=== PATIENT | female | born 1955 | race Caucasian/White ===

== ENCOUNTER 2018-05-02 17:15 | Inpatient (IN) | payer MEDICAID ==
[~2018-05-02] VITALS: Ht 162.6 cm; Wt 99.8 kg
[2018-05-02] MEDS ORDERED: TRAZ-212 PO (17:30)
[2018-05-02] MEDS ORDERED: MECL-109 PO (17:30)
[2018-05-02] MEDS ORDERED: METF10004 PO (17:30)
[2018-05-02] MEDS ORDERED: HYDR25TA PO (17:30)
[2018-05-02] MEDS ORDERED: ASPIRIN 81MG TABLET PO ONE (22:30)
[2018-05-02 23:14] LABS: BASOPHILS % 0.4 % (0.0-2.0); EOSINOPHILS % 2.1 % (0.0-5.0); HEMATOCRIT. 45.8 % (36.0-48.0); LYMPHOCYTES % 44.2 % (20.0-50.0); MEAN CORPUSCULAR HEMOGLOBIN 26.9 pg (28.0-32.0); MEAN CORPUSCULAR VOLUME 82.1 fL (81.0-99.0); MEAN PLATELET VOLUME 8.7 fl (7.4-10.4); MONOCYTES % 6.4 % (2.0-8.0); NEUTROPHILS % 46.9 % (40.0-76.0); PLATELET 257 x1000/uL (130-400); RED BLOOD CELL COUNT 5.58 mill/uL (4.2-5.4); RED CELL DISTRIBUTION WIDTH 14.4 % (11.6-14.6)
[2018-05-02 23:18] LABS: CHLORIDE 105 mEq/L (98-107)
[2018-05-02 23:23] LABS: PARTIAL THROMBOPLASTIN TIME 26.6 sec (23.4-31.0); PROTHROMBIN TIME 10.4 sec (9.1-11.1)
[2018-05-02 23:26] LABS: BETA HYDROXYBUTYRATE 0.1 mMol/L (0.0-0.3)
[2018-05-02 23:43] LABS: CLARITY URINE CLEAR (CLEAR); COLOR URINE YELLOW (YELLOW); KETONES URINE NEGATIVE (NEGATIVE); LEUKOCYTE ESTERASE URINE NEGATIVE (NEGATIVE); NITRITE URINE NEGATIVE (NEGATIVE); OCCULT BLOOD URINE NEGATIVE (NEGATIVE); PROTEIN URINE NEGATIVE (NEGATIVE); UROBILINOGEN URINE 0.2 E.U./dL (0.2-1.0)
[2018-05-03 02:30] VITALS: BP 140/54
[2018-05-03 03:27] VITALS: BP 140/54
[2018-05-03] MEDS ORDERED: DEXTROSE 50% WATER 50ML SYRINGE IV PRN (03:30)
[2018-05-03] MEDS: BLOOD SUGAR DIAGNOSTIC STRIP TEST SCH ×4 (06:34→21:00)
[2018-05-03] MEDS: INSULIN LISPRO 100 UNITS/ML SUBCUT SCH ×4 (07:23→21:00)
[2018-05-03 08:00] VITALS: BP 110/48
[2018-05-03] MEDS: HYDROCHLOROTHIAZIDE 25MG TABLET PO SCH (09:00)
[2018-05-03] MEDS: METFORMIN HCL 500MG TABLET PO SCH ×2 (09:18→18:48)
[2018-05-03] MEDS ORDERED: MORPHINE SULFATE 4 MG/ML CPJ (NOT FOR IM USE) IV PRN (10:00)
[2018-05-03] MEDS ORDERED: ACETAMINOPHEN 325MG TABLET PO PRN (10:00)
[2018-05-03 12:00] VITALS: BP 134/60
[2018-05-03] MEDS ORDERED: DIPHENHYDRAMINE 50MG/ML VIAL IV PRN (12:15)
[2018-05-03] MEDS ORDERED: ONDANSETRON HCL 4MG/2ML INJ IV PRN (12:15)
[2018-05-03] MEDS ORDERED: SUMATRIPTAN SUCCINATE 6MG/0.5ML VIAL SUBCUT NR (13:30)
[2018-05-03 16:00] VITALS: BP 137/60
[2018-05-03] MEDS: MECLIZINE 25MG TABLET PO PRN (16:01)
[2018-05-03 20:00] VITALS: BP 130/70
[2018-05-03] MEDS: HYDROCODONE/ACETAMINOPHEN 5/325MG TABLET PO PRN (20:18)
[2018-05-04] VITALS: BP 106/51
[2018-05-04 04:00] VITALS: BP 121/52
[2018-05-04] MEDS: HYDROCODONE/ACETAMINOPHEN 5/325MG TABLET PO PRN ×2 (07:07→20:19)
[2018-05-04] MEDS: BLOOD SUGAR DIAGNOSTIC STRIP TEST SCH ×4 (07:10→20:15)
[2018-05-04 07:19] LABS: BASOPHILS % 0.7 % (0.0-2.0); EOSINOPHILS % 2.9 % (0.0-5.0); HEMATOCRIT. 45.9 % (36.0-48.0); HEMOGLOBIN. 15.1 g/dL (12.0-16.0); LYMPHOCYTES % 54.4 % (20.0-50.0); MEAN CORPUSCULAR HEMOGLOBIN 27.4 pg (28.0-32.0); MEAN CORPUSCULAR VOLUME 83.6 fL (81.0-99.0); MEAN PLATELET VOLUME 9.3 fl (7.4-10.4); MONOCYTES % 5.9 % (2.0-8.0); NEUTROPHILS % 36.1 % (40.0-76.0); PLATELET 150 x1000/uL (130-400); RED BLOOD CELL COUNT 5.49 mill/uL (4.2-5.4); RED CELL DISTRIBUTION WIDTH 14.7 % (11.6-14.6)
[2018-05-04] MEDS: INSULIN LISPRO 100 UNITS/ML SUBCUT SCH ×4 (07:50→20:15)
[2018-05-04 07:59] LABS: CHLORIDE 107 mEq/L (98-107)
[2018-05-04 08:00] VITALS: BP 116/61
[2018-05-04] MEDS: METFORMIN HCL 500MG TABLET PO SCH ×2 (08:44→17:40)
[2018-05-04] MEDS: HYDROCHLOROTHIAZIDE 25MG TABLET PO SCH (08:45)
[2018-05-04 12:00] VITALS: BP 120/68
[2018-05-04 16:00] VITALS: BP 120/53
[2018-05-04 20:00] VITALS: BP 119/71
[2018-05-05] VITALS: BP 116/51
[2018-05-05 04:00] VITALS: BP 122/53
[2018-05-05] MEDS: HYDROCODONE/ACETAMINOPHEN 5/325MG TABLET PO PRN (04:06)
[2018-05-05] MEDS: BLOOD SUGAR DIAGNOSTIC STRIP TEST SCH ×2 (07:20→12:38)
[2018-05-05] MEDS: INSULIN LISPRO 100 UNITS/ML SUBCUT SCH ×2 (07:45→12:50)
[2018-05-05 08:00] VITALS: BP 111/60
[2018-05-05 08:25] LABS: LUTEINIZING HORMONE 18.3 mIU/mL (.); PROLACTIN 14.9 ng/mL (4.8-23.3)
[2018-05-05] MEDS: METFORMIN HCL 500MG TABLET PO SCH (08:32)
[2018-05-05] MEDS: HYDROCHLOROTHIAZIDE 25MG TABLET PO SCH (08:33)
[2018-05-05] MEDS: MECLIZINE 25MG TABLET PO PRN (11:31)
[2018-05-05 12:00] VITALS: BP 128/53
[2018-05-05 12:41] VITALS: BP 128/53
== END 2018-05-05 14:56 | disposition home or self-care (01) | DRG 48 ==
LOC: ER 17:15 → 6EST 23:57 → ENRESERV 05-03 01:40
PROVIDERS: ADMIT Internal Medicine; ATTEND Internal Medicine
DX: G90.8 Other disorders of autonomic nervous system (principal); G61.0 Guillain-Barre syndrome; E11.9 Type 2 diabetes mellitus without complications; G89.29 Other chronic pain; H40.9 Unspecified glaucoma; I10 Essential (primary) hypertension; E66.01 Morbid (severe) obesity due to excess calories; M54.9 Dorsalgia, unspecified; Z96.652 Presence of left artificial knee joint; Z79.84 Long term (current) use of oral hypoglycemic drugs; Z68.37 Body mass index [BMI] 37.0-37.9, adult; Z90.710 Acquired absence of both cervix and uterus; Z85.42 Personal history of malignant neoplasm of other parts of uterus; Z79.899 Other long term (current) drug therapy; Z98.891 History of uterine scar from previous surgery
CPT/HCPCS: 36415; 70450; 70551; 71045; 80048; 80053; 81003; 82010; 82024; 82533; 82962; 83001; 83002; 83003; 83520; 83880; 84146; 84439; 84443; 84484; 85025; 85610; 85730; 93005; 93306; 93880; 97116; 97162; 99285; J3030; J8597

== ENCOUNTER 2019-01-23 16:19 | Emergency (ER) | payer MEDICAID ==
[~2019-01-23] VITALS: Ht 162.6 cm; Wt 100.0 kg
[~2019-01-23 16:19] MED LIST: HYDR25TA PO; MECL-109 PO; METF-416 PO; TRAZ-251 PO
[2019-01-23] MEDS ORDERED: SODIUM CHLORIDE 0.9% 1,000 ML IV ONE (23:06)
[2019-01-23] MEDS ORDERED: MORPHINE SULFATE 4 MG/ML CPJ (NOT FOR IM USE) IV STA (23:06)
[2019-01-23] MEDS ORDERED: ONDANSETRON HCL 4MG/2ML INJ IV STA (23:06)
[2019-01-23] MEDS ORDERED: CEFTRIAXONE 1 G PREMIX 50 ML IV ONE (23:15)
[2019-01-23 23:42] LABS: BASOPHILS % 0.8 % (0.0-2.0); EOSINOPHILS % 1.2 % (0.0-5.0); HEMATOCRIT. 42.5 % (36.0-48.0); HEMOGLOBIN. 14.2 g/dL (12.0-16.0); LYMPHOCYTES % 29.6 % (20.0-50.0); MEAN CORPUSCULAR HEMOGLOBIN 27.9 pg (28.0-32.0); MEAN CORPUSCULAR VOLUME 83.5 fL (81.0-99.0); MEAN PLATELET VOLUME 8.9 fl (7.4-10.4); MONOCYTES % 7.8 % (2.0-8.0); NEUTROPHILS % 60.6 % (40.0-76.0); PLATELET 231 x1000/uL (130-400); RED BLOOD CELL COUNT 5.09 mill/uL (4.2-5.4); RED CELL DISTRIBUTION WIDTH 13.5 % (11.6-14.6)
[2019-01-23 23:49] LABS: CHLORIDE 108 mEq/L (98-107)
[2019-01-24 02:56] VITALS: BP 138/39
[2019-01-24] MEDS ORDERED: IOHEXOL-300 100 ML BOTTLE ONE (04:31)
== END 2019-01-24 02:59 | disposition home or self-care (01) ==
LOC: ER 16:19
DX: K11.20 Sialoadenitis, unspecified (principal); E11.9 Type 2 diabetes mellitus without complications; Z85.42 Personal history of malignant neoplasm of other parts of uterus; Z90.710 Acquired absence of both cervix and uterus
CPT/HCPCS: 36415; 70487; 80053; 82962; 83605; 84145; 85025; 87040; 96365; 96366; 96375; 99284; J0696; J2270; J2405; J7030; Q9967

== ENCOUNTER 2020-12-10 20:17 | Emergency (ER) | payer OTHER, MEDICAID ==
[~2020-12-10] VITALS: Ht 162.6 cm; Wt 118.0 kg
[~2020-12-10 20:17] MED LIST changes: -MECL-109 PO; +MECL-159 PO
[2020-12-10] MEDS ORDERED: KETOROLAC 15MG/ML VIAL IV ONE (21:00)
[2020-12-10] MEDS ORDERED: PIPERACILLIN/TAZ 3.375G PREMIX 50 ML IV ONE (21:00)
[2020-12-10] MEDS ORDERED: VANCOMYCIN 1 G PREMIX 200 ML IV ONE (21:00)
[2020-12-10 23:15] LABS: BASOPHILS % 0.9 % (0.0-2.0); EOSINOPHILS % 2.6 % (0.0-5.0); HEMATOCRIT. 44.9 % (36.0-48.0); HEMOGLOBIN. 15.1 g/dL (12.0-16.0); LYMPHOCYTES % 35.1 % (20.0-50.0); MEAN CORPUSCULAR HEMOGLOBIN 27.8 pg (28.0-32.0); MEAN CORPUSCULAR VOLUME 82.6 fL (81.0-99.0); MEAN PLATELET VOLUME 8.9 fl (7.4-10.4); MONOCYTES % 6.6 % (2.0-8.0); NEUTROPHILS % 54.8 % (40.0-76.0); PLATELET 193 x1000/uL (130-400); RED BLOOD CELL COUNT 5.43 mill/uL (4.2-5.4)
[2020-12-10 23:21] LABS: CHLORIDE 111 mEq/L (98-107)
[2020-12-10 23:24] LABS: PROTHROMBIN TIME 10.3 sec (9.6-11.0)
[2020-12-11] MEDS ORDERED: DEXAMETHASONE 10 MG/ML VIAL IV ONE (01:30)
[2020-12-11] MEDS ORDERED: IOHEXOL-300 100 ML BOTTLE ONE (01:42)
[2020-12-11] MEDS ORDERED: CLIN300C12 MT (01:43)
[2020-12-11] MEDS ORDERED: CIPR-263 MT (01:43)
[2020-12-11 01:50] VITALS: BP 147/72
== END 2020-12-11 02:10 | disposition home or self-care (01) ==
LOC: ER 20:17
DX: K11.21 Acute sialoadenitis (principal); L03.211 Cellulitis of face; E11.9 Type 2 diabetes mellitus without complications; Z85.42 Personal history of malignant neoplasm of other parts of uterus; Z79.84 Long term (current) use of oral hypoglycemic drugs; Z98.890 Other specified postprocedural states; Z96.659 Presence of unspecified artificial knee joint
CPT/HCPCS: 36415; 70487; 70491; 80053; 83605; 85025; 85610; 87040; 96365; 96367; 96375; 99285; J1100; J1885; J2543; J3370; Q9967; Z7610

== ENCOUNTER 2023-01-15 16:44 | Emergency (ER) | payer OTHER, MEDICAID ==
[~2023-01-15] VITALS: Ht 170.2 cm; Wt 130.0 kg
[~2023-01-15 16:44] MED LIST changes: +CIPR-263 MT; +CLIN-194 MT
[2023-01-15 17:18] LABS: BASOPHILS % 0.4 % (0.0-2.0); EOSINOPHILS % 3.1 % (0.0-5.0); HEMOGLOBIN. 13.8 g/dL (12.0-16.0); LYMPHOCYTES % 32.3 % (20.0-50.0); MEAN CORPUSCULAR HEMOGLOBIN 27.3 pg (28.0-32.0); MEAN CORPUSCULAR VOLUME 83.3 fL (81.0-99.0); MEAN PLATELET VOLUME 9.1 fl (7.4-10.4); MONOCYTES % 8.3 % (2.0-8.0); NEUTROPHILS % 55.9 % (40.0-76.0); PLATELET 209 x1000/uL (130-400); RED BLOOD CELL COUNT 5.04 mill/uL (4.2-5.4); RED CELL DISTRIBUTION WIDTH 14.3 % (11.6-14.6)
[2023-01-15 17:37] LABS: CHLORIDE 110 mEq/L (98-107)
[2023-01-15] MEDS ORDERED: KETOROLAC 60MG/2ML VIAL IM ONE (21:00)
[2023-01-15 22:45] LABS: CLARITY URINE CLEAR (CLEAR); COLOR URINE YELLOW (YELLOW); KETONES URINE TRACE (NEGATIVE); LEUKOCYTE ESTERASE URINE NEGATIVE (NEGATIVE); NITRITE URINE NEGATIVE (NEGATIVE); OCCULT BLOOD URINE NEGATIVE (NEGATIVE); PROTEIN URINE NEGATIVE (NEGATIVE); SPECIFIC GRAVITY URINE 1.029 (1.005-1.030)
[2023-01-16] MEDS ORDERED: OXYCODONE HCL/ACETAMINOPHEN 5/325MG TABLET PO ONE (00:15)
[2023-01-16 00:33] VITALS: BP 148/92
[2023-01-16] MEDS ORDERED: T3 PO (00:52)
[2023-01-16] MEDS ORDERED: IBUP-2028 PO (00:52)
== END 2023-01-16 01:15 | disposition home or self-care (01) ==
LOC: ER 16:44
DX: M54.2 Cervicalgia (principal); E11.9 Type 2 diabetes mellitus without complications; Z98.890 Other specified postprocedural states; Z79.899 Other long term (current) drug therapy
CPT/HCPCS: 36415; 70450; 72125; 80053; 81003; 85025; 93005; 96372; 99285; J1885

== ENCOUNTER 2024-09-13 20:15 | Emergency (ER) | payer OTHER, MEDICAID ==
[~2024-09-13] VITALS: Ht 162.6 cm; Wt 90.0 kg
[~2024-09-13 20:15] MED LIST changes: +IBUP-2028 PO; -MECL-159 PO; +MECL-299 PO; +T3 PO
[2024-09-13 20:18] VITALS: O2SAT 98
[2024-09-13 21:37] LABS: BASOPHILS % 0.3 % (0.0-2.0); HEMATOCRIT. 41.6 % (36.0-48.0); HEMOGLOBIN. 13.6 g/dL (12.0-16.0); LYMPHOCYTES % 16.9 % (20.0-50.0); MEAN CORPUSCULAR HEMOGLOBIN 27.6 pg (28.0-32.0); MEAN CORPUSCULAR HGB CONC 32.8 g/dL (31.0-37.0); MEAN CORPUSCULAR VOLUME 84.3 fL (81.0-99.0); MEAN PLATELET VOLUME 8.5 fl (7.4-10.4); MONOCYTES % 9.3 % (2.0-8.0); NEUTROPHILS % 73.5 % (40.0-76.0); PLATELET 173 x1000/uL (130-400); RED BLOOD CELL COUNT 4.93 mill/uL (4.2-5.4); WHITE BLOOD COUNT 6.9 x1000/uL (4.5-11.0)
[2024-09-13 21:46] LABS: PROTHROMBIN TIME 11.5 sec (9.6-11.0)
[2024-09-13 21:49] LABS: CHLORIDE 104 mEq/L (98-107); POTASSIUM 4.1 mEq/L (3.5-5.1); SODIUM 137 mEq/L (136-145)
[2024-09-13 21:50] LABS: CALCIUM 8.5 mg/dL (8.7-10.4); CARBON DIOXIDE 25 mEq/L (21-32)
[2024-09-13 21:54] LABS: TROPONIN I HIGH SENSITIVITY 18 ng/L (3.0-34)
[2024-09-13 21:55] LABS: CREATININE 0.8 mg/dL (0.6-1.0); GLUCOSE 107 mg/dL (70-105); UREA NITROGEN BLOOD 13 mg/dL (9-23)
[2024-09-13 21:56] LABS: ALANINE AMINOTRANSFERASE 20 IU/L (10-49)
[2024-09-13 21:57] LABS: ALBUMIN 3.7 g/dL (3.2-4.8); ASPARTATE AMINOTRANSFERASE 45 IU/L (<34); BILIRUBIN DIRECT 0.2 mg/dL (<=3.0); BILIRUBIN TOTAL 0.5 mg/dL (0.1-1.0); ETHANOL BLOOD < 10 mg/dL (<10)
[2024-09-13 21:58] LABS: PROTEIN TOTAL 6.3 g/dL (6.0-8.3)
[2024-09-13] MEDS: CEFTRIAXONE 1GM/50ML 50 ML IV ONE (22:14)
[2024-09-13] MEDS: SODIUM CHLORIDE 0.9% (SEPSIS BOLUS) IV ONE (22:14)
[2024-09-13] MEDS: ACETAMINOPHEN 325MG TABLET PO NR (22:15)
[2024-09-13] MEDS: VANCOMYCIN 1G PREMIX 200 ML IV ONE (22:42)
[2024-09-14] MEDS: ATORVASTATIN CALCIUM 20MG TABLET PO NR (00:07)
[2024-09-14] MEDS: ASPIRIN 81MG EC TABLET PO NR (00:10)
[2024-09-14] MEDS: CLOPIDOGREL 75MG TABLET PO NR (00:11)
[2024-09-14 00:25] VITALS: TEMP 37.2
[2024-09-14] MEDS ORDERED: IPRATROPIUM/ALBUTEROL 0.5-3(2.5)MG/3ML NEB NEB PRN (01:00)
[2024-09-14] MEDS ORDERED: ZOLPIDEM TARTRATE 5MG TABLET PO PRN (01:00)
[2024-09-14] MEDS ORDERED: CLONIDINE 0.1MG TABLET PO PRN (01:00)
[2024-09-14] MEDS ORDERED: ONDANSETRON HCL 4MG/2ML INJ IV PRN (01:00)
[2024-09-14] MEDS ORDERED: HYDROCODONE/ACETAMINOPHEN 5/325MG TABLET PO PRN (01:00)
[2024-09-14] MEDS: IOHEXOL-350 100 ML BOTTLE ONE (01:38)
[2024-09-14 02:02] LABS: CLARITY URINE CLEAR (CLEAR); COLOR URINE YELLOW (YELLOW); GLUCOSE URINE NEGATIVE (NEGATIVE); KETONES URINE NEGATIVE (NEGATIVE); LEUKOCYTE ESTERASE URINE NEGATIVE (NEGATIVE); NITRITE URINE NEGATIVE (NEGATIVE); OCCULT BLOOD URINE NEGATIVE (NEGATIVE); PROTEIN URINE 1+ (NEGATIVE); SPECIFIC GRAVITY URINE 1.094 (1.005-1.030); UROBILINOGEN URINE 0.2 E.U./dL (0.2-1.0)
[2024-09-14 02:10] LABS: INFLUENZA TYPE A Presumptive Negative (Pres. Neg.)
[2024-09-14 02:11] LABS: INFLUENZA TYPE B Presumptive Negative (Pres. Neg.)
[2024-09-14 02:31] VITALS: BP 120/63; PULSE 70; RESP 13; O2SAT 95
[2024-09-14 02:33] LABS: *AMPHETAMINES SCREEN URINE NEGATIVE (NEGATIVE); *BARBITURATES SCREEN URINE NEGATIVE (NEGATIVE); *BENZODIAZEPINES SCREEN URINE NEGATIVE (NEGATIVE); *COCAINE SCREEN URINE NEGATIVE (NEGATIVE); METHADONE URINE SCREEN NEGATIVE (NEGATIVE)
[2024-09-14 02:34] LABS: CANNABINOID URINE SCREEN NEGATIVE (NEGATIVE); OPIATES URINE SCREEN NEGATIVE (NEGATIVE); PHENCYCLIDINE URINE SCREEN NEGATIVE (NEGATIVE)
[2024-09-14 02:35] LABS: ECSTASY MDMA SCREEN URINE NEGATIVE (NEGATIVE)
[2024-09-14 03:41] LABS: SQUAMOUS EPITHELIAL CELL URINE FEW /lpf (RARE/1+); WBC URINE 0-2 /hpf (0-2)
[2024-09-14 03:42] LABS: BACTERIA URINE NONE SEEN; RBC URINE 0-2 /hpf (0-2)
[2024-09-14] MEDS ORDERED: PANTOPRAZOLE SODIUM 40 MG/VIAL IV SCH (09:00)
[2024-09-14] MEDS ORDERED: ASPIRIN 81MG EC TABLET PO SCH (09:00)
[2024-09-14] MEDS ORDERED: ENOXAPARIN 40MG/0.4ML SYR SUBCUT SCH (09:00)
[2024-09-14] MEDS ORDERED: ATORVASTATIN CALCIUM 40MG TABLET PO SCH (21:00)
[2024-09-14] MEDS ORDERED: CEFTRIAXONE 1GM/50ML 50 ML IV SCH (22:00)
== END 2024-09-14 03:40 | disposition short-term general hospital (02) ==
LOC: ER 20:15 → EDBEDREQSVC 09-14 01:54 → EDBEDREQTM 09-14 01:54 → ER 09-14 03:40
DX: R47.01 Aphasia (principal); B34.9 Viral infection, unspecified; E11.9 Type 2 diabetes mellitus without complications; Z79.1 Long term (current) use of non-steroidal anti-inflammatories (NSAID); Z86.73 Personal history of transient ischemic attack (TIA), and cerebral infarction without residual deficits; Z20.822 Contact with and (suspected) exposure to COVID-19; Z79.899 Other long term (current) drug therapy
CPT/HCPCS: 80076; 80048; 80320; 83690; 85025; 85610; 87040 ×2; 84484; 36415; 71045; 70496; 70498; 70450; 93005; 96367; 96365; 99291; 99292; 80305; 81003; 83605; 87086; 87804 ×2; 84145; 87426; Q9967; J0696; J3370; J7030; G0480